=== PATIENT | female | born 1975 | race African-American/Black ===

== ENCOUNTER 2016-07-23 15:50 | Emergency (ER) | payer MEDICAID ==
[2016-07-23] MEDS ORDERED: Sodium Chloride 0.9% 10 ML Syringe FLUSH PRN (15:55)
[2016-07-23] MEDS ORDERED: Sodium Chloride 0.9% 2.5 ML Syringe FLUSH PRN (15:55)
--- NOTE | 2016-07-23 15:56 | EDM.PDOC ---
ED HISTORY OF PRESENT ILLNESS - General Stated Complaint: DIZZINESS Time Seen by Provider: 07/23/16 15:53 Source of Information: Reports: Patient History Limitations: Reports: No limitations - History of Present Illness INITIAL COMMENTS - FREE TEXT/NARRATIVE: History of present illness: [] She has been having palpitations for the last 3 days and went to the clinic today but was immediately sent to the emergency room. Patient has a history of high blood pressure but has been off her meds for 3 months. She denies having any chest pain or shortness of breath at this time. Review of systems: As per history of present illness and below otherwise all systems reviewed and negative. Past medical history: As per history of present illness and as reviewed below otherwise noncontributory. Surgical history: As per history of present illness and as reviewed below otherwise noncontributory. Social history: No reported history of drug or alcohol abuse. Family history: As per history of present illness and as reviewed below otherwise noncontributory. Physical exam: General: Well developed, well nourished in NAD HEENT: Atraumatic, normocephalic, pupils reactive, negative for conjunctival pallor or scleral icterus, mucous membranes moist, throat clear, neck supple, nontender, trachea midline. Lungs: Clear to auscultation, breath sounds equal bilaterally, chest nontender. Heart: S1S2, regular, negative for clicks, rubs, or JVD. Abdomen: Soft, nondistended, nontender. Negative for masses or hepatosplenomegaly. Negative for costovertebral tenderness. Pelvis: Stable nontender. Genitourinary: Deferred. Rectal: Deferred. Extremities: Atraumatic, negative for cords or calf pain. Neurovascular unremarkable. Neuro: Awake, alert, oriented. Cranial nerves II through XII unremarkable. Cerebellum unremarkable. Motor and sensory unremarkable throughout. Exam nonfocal. Diagnostics: [] Labs, chest x-ray, EKG, CT head all normal except for mild hypokalemia Therapeutics: [] She was given pain medication for her headache her symptoms resolved. Impression: [] Uncontrolled hypertension, palpitations Plan: [] Followup PMD, I will restart her back on metoprolol 25 mg twice a day. Definitive disposition and diagnosis as appropriate pending reevaluation and review of above. - Related Data Allergies/ADRs: Allergies Allergy/AdvReac Type Severity Reaction Status Date / Time No Known Allergies Allergy Verified 07/23/16 15:57 Home Meds: Home Meds Metoprolol Tartrate 25 mg PO BID #20 tablet 07/23/16 [Rx] ED ROS GENERAL - Review of Systems Review Of Systems: See Below (See history of present illness) ED EXAM, GENERAL - Physical Exam Exam: See Below (See history of present illness) Course - Vital Signs Last Recorded V/S: Last Vital Signs Temp 37.1 C 07/23/16 18:13 Pulse 62 07/23/16 18:13 Resp 15 07/23/16 18:13 BP 145/92 H 07/23/16 18:13 Pulse Ox 99 07/23/16 17:00 - Orders/Labs/Meds Orders: Active Orders 24 hr Category Date Time Status Chest 1V Frontal [CR] Stat Exams 07/23/16 15:55 Taken Head wo Cont [CT] Stat Exams 07/23/16 17:01 Taken Sodium Chloride 0.9% [Saline Flush] Med 07/23/16 15:55 Active 10 ml FLUSH ASDIRECTED PRN Sodium Chloride 0.9% [Saline Flush] Med 07/23/16 15:55 Active 2.5 ml FLUSH ASDIRECTED PRN Peripheral IV Insertion Adult [OM.PC] Stat Oth 07/23/16 15:55 Ordered Medication Orders Sodium Chloride (Saline Flush) 10 ml FLUSH ASDIRECTED PRN PRN Reason: Keep Vein Open Last Admin: 07/23/16 16:08 Dose: 10 ml Sodium Chloride (Saline Flush) 2.5 ml FLUSH ASDIRECTED PRN PRN Reason: Keep Vein Open Last Admin: 07/23/16 16:08 Dose: 2.5 ml Labs: Laboratory Tests 07/23/16 07/23/16 07/23/16 Range/Units 16:00 16:00 16:00 WBC 5.73 (4.0-11.0) K/uL RBC 4.66 (4.30-5.90) M/uL Hgb 11.2 L (12.0-16.0) g/dL Hct 35.8 L (36.0-46.0) % MCV 76.8 L (80.0-98.0) fL MCH 24.0 L (27.0-32.0) pg MCHC 31.3 (31.0-37.0) g/dL RDW Std Deviation 43.4 (28.0-62.0) fl RDW Coeff of Kendrick 16 H (11.0-15.0) % Plt Count 256 (150-400) K/uL MPV 10.30 (7.40-12.00) fL Neut % (Auto) 55.9 (48.0-80.0) % Lymph % (Auto) 29.5 (16.0-40.0) % Trimble % (Auto) 13.4 (0.0-15.0) % Eos % (Auto) 0.9 (0.0-7.0) % Baso % (Auto) 0.3 (0.0-1.5) % Neut # 3.2 (1.4-5.7) K/uL Lymph # 1.7 (0.6-2.4) K/uL Trimble # 0.8 (0.0-0.8) K/uL Eos # 0.1 (0.0-0.7) K/uL Baso # 0.0 (0.0-0.1) K/uL Nucleated RBC % 0.0 /100WBC Nucleated RBCs # 0 K/uL Sodium 142 (136-146) mmol/L Potassium 3.3 L (3.5-5.1) mmol/L Chloride 106 (98-110) mmol/L Carbon Dioxide 25 (21-31) mmol/L BUN 13 (6.0-23.0) mg/dL Creatinine 0.9 (0.6-1.5) mg/dL Est Cr Clr Drug Dosing 77.01 mL/min Estimated GFR (MDRD) > 60.0 ml/min Glucose 78 (60-110) mg/dL Calcium 9.2 (8.8-10.8) mg/dL Total Bilirubin 0.2 (0.1-1.5) mg/dL AST 24 (5-40) IU/L ALT 23 (8-54) IU/L Alkaline Phosphatase 75 (40-150) Troponin I < 0.10 (0.0-0.29) NG/ML Total Protein 7.9 (6.0-8.0) g/dL Albumin 3.8 (3.5-5.0) g/dL Globulin 4.1 H (2.0-3.5) g/dL Albumin/Globulin Ratio 0.9 L (1.3-2.8) HCG, Qual (NEG) 07/23/16 Range/Units 16:00 WBC (4.0-11.0) K/uL RBC (4.30-5.90) M/uL Hgb (12.0-16.0) g/dL Hct (36.0-46.0) % MCV (80.0-98.0) fL MCH (27.0-32.0) pg MCHC (31.0-37.0) g/dL RDW Std Deviation (28.0-62.0) fl RDW Coeff of Kendrick (11.0-15.0) % Plt Count (150-400) K/uL MPV (7.40-12.00) fL Neut % (Auto) (48.0-80.0) % Lymph % (Auto) (16.0-40.0) % Trimble % (Auto) (0.0-15.0) % Eos % (Auto) (0.0-7.0) % Baso % (Auto) (0.0-1.5) % Neut # (1.4-5.7) K/uL Lymph # (0.6-2.4) K/uL Trimble # (0.0-0.8) K/uL Eos # (0.0-0.7) K/uL Baso # (0.0-0.1) K/uL Nucleated RBC % /100WBC Nucleated RBCs # K/uL Sodium (136-146) mmol/L Potassium (3.5-5.1) mmol/L Chloride (98-110) mmol/L Carbon Dioxide (21-31) mmol/L BUN (6.0-23.0) mg/dL Creatinine (0.6-1.5) mg/dL Est Cr Clr Drug Dosing mL/min Estimated GFR (MDRD) ml/min Glucose (60-110) mg/dL Calcium (8.8-10.8) mg/dL Total Bilirubin (0.1-1.5) mg/dL AST (5-40) IU/L ALT (8-54) IU/L Alkaline Phosphatase (40-150) Troponin I (0.0-0.29) NG/ML Total Protein (6.0-8.0) g/dL Albumin (3.5-5.0) g/dL Globulin (2.0-3.5) g/dL Albumin/Globulin Ratio (1.3-2.8) HCG, Qual NEGATIVE (NEG) Meds: Medications Generic Name Dose Route Start Last Admin Trade Name Freq PRN Reason Stop Dose Admin Sodium Chloride 10 ml 07/23/16 15:55 07/23/16 16:08 Saline Flush FLUSH 10 ml ASDIRECTED PRN Administration Keep Vein Open Sodium Chloride 2.5 ml 07/23/16 15:55 07/23/16 16:08 Saline Flush FLUSH 2.5 ml ASDIRECTED PRN Administration Keep Vein Open Discontinued Medications Generic Name Dose Route Start Last Admin Trade Name Freq PRN Reason Stop Dose Admin Morphine Sulfate 2 mg 07/23/16 17:00 07/23/16 17:23 Morphine IVPUSH 07/23/16 17:01 2 mg ONETIME ONE Administration Ondansetron HCl 4 mg 07/23/16 17:00 07/23/16 17:23 Zofran IVPUSH 07/23/16 17:01 4 mg ONETIME ONE Administration Potassium Chloride 40 meq 07/23/16 16:42 07/23/16 16:59 Klor-Con M20 PO 07/23/16 16:43 40 meq ONETIME ONE Administration Departure - Departure Time of Disposition: 18:37 Disposition: Home, Self-Care 01 Condition: good Clinical Impression: Uncontrolled hypertension, Palpitations Forms: Refusal of Care AMA Additional Instructions: The following information is given to patients seen in the emergency department who are being discharged to home. This information is to outline your options for follow-up care. We provide all patients seen in our emergency department with a follow-up referral. The need for follow-up, as well as the timing and circumstances, are variable depending upon the specifics of your emergency department visit. If you don't have a primary care physician on staff, we will provide you with a referral. We always advise you to contact your personal physician following an emergency department visit to inform them of the circumstance of the visit and for follow-up with them and/or the need for any referrals to a consulting specialist. The emergency department will also refer you to a specialist when appropriate. This referral assures that you have the opportunity for follow-up care with a specialist. All of these measure are taken in an effort to provide you with optimal care, which includes your follow-up. Under all circumstances we always encourage you to contact your private physician who remains a resource for coordinating your care. When calling for follow-up care, please make the office aware that this follow-up is from your recent emergency room visit. If for any reason you are refused follow-up, please contact the [facility] Emergency Department at and asked to speak to the emergency department charge nurse. Toprol 25 mg twice a day [facility] [address] [place] [address] - My Orders Last 24 Hours: My Active Orders 07/23/16 15:55 Chest 1V Frontal [CR] Stat Sodium Chloride 0.9% [Saline Flush] 10 ml FLUSH ASDIRECTED PRN Sodium Chloride 0.9% [Saline Flush] 2.5 ml FLUSH ASDIRECTED PRN Peripheral IV Insertion Adult [OM.PC] Stat 07/23/16 17:01 Head wo Cont [CT] Stat - Assessment/Plan Last 24 Hours: My Active Orders 07/23/16 15:55 Chest 1V Frontal [CR] Stat Sodium Chloride 0.9% [Saline Flush] 10 ml FLUSH ASDIRECTED PRN Sodium Chloride 0.9% [Saline Flush] 2.5 ml FLUSH ASDIRECTED PRN Peripheral IV Insertion Adult [OM.PC] Stat 07/23/16 17:01 Head wo Cont [CT] Stat
[2016-07-23 16:35] LABS: CHLORIDE,CL 106 mmol/L (98-110); SODIUM,NA 142 mmol/L (136-146)
[2016-07-23] MEDS ORDERED: Potassium Chloride 20 MEQ Tab.ER PO ONE (16:42)
[2016-07-23] MEDS ORDERED: Morphine 2 MG/ML Syringe IVPUSH ONE (17:00)
[2016-07-23] MEDS: Ondansetron 4 MG/2 ML SDV IVPUSH ONE ×2 (17:23→18:40)
[2016-07-23] MEDS: Morphine 2 MG/ML Syringe IVPUSH ONE ×2 (18:40→18:49)
[2016-07-23 19:17] VITALS: BP 156/74
--- NOTE | 2016-07-24 13:10 | CR ---
EXAM DATE: 07/23/16 PATIENT'S AGE: 41 Patient: RALF RAMIREZ Facility: [place], [place] Site . Site : 1975 Study: XRay Chest [id number]/7/2017 4:47:18 PM Ordering Physician: Doctor Burr Final Report: HISTORY: Pain, shortness of breath. FINDINGS: AP portable chest radiograph is degraded by large body habitus. Apical lordotic positioning is present. EKG leads overlie the thorax. Cardiac silhouette is upper limits of normal. Pulmonary vasculature is free of cephalization. No lobar consolidation or pleural effusion is seen. IMPRESSION: No acute cardiopulmonary disease. Dictated by Courtney Guzman MD @ 07/23/2016 5:03:17 PM Dictated by: Courtney Guzman MD @ 07/23/2016 17:03:24 (Electronic Signature) Report Signed by Proxy and Original Signed Document filed in the Medical Record. GEMA
--- NOTE | 2016-07-24 13:11 | CT ---
EXAM DATE: 07/23/16 PATIENT'S AGE: 41 Patient: RALF RAMIREZ Facility: [place], [place] Site . Site : 1975 Study: CT Head [id number]/7/2017 6:04:54 PM Ordering Physician: Pineda Rocha Final Report: INDICATION: Pain, dizzy, sinus pressure TECHNIQUE: CT head without contrast. COMPARISON: None FINDINGS: CSF spaces: Within normal limits for age. Brain parenchyma: The cheng-white differentiation is normal. No sign of mass, hemorrhage, or midline shift. Skull base and calvarium: The visualized paranasal sinuses and mastoid air cells demonstrate no acute or significant findings. The visualized orbits are grossly unremarkable. No skull fractures. IMPRESSION: Unremarkable noncontrast head CT. Dictated by Aria Montana MD @ Jul 23 2016 6:23PM (Electronic Signature) Report Signed by Proxy and Original Signed Document filed in the Medical Record. GEMA
[2016-07-25] MEDS: Morphine 2 MG/ML Syringe IVPUSH ONE (10:37)
== END 2016-07-23 19:41 | disposition home or self-care (01) ==
LOC: MW.ED 15:50
DX: I10 Essential (primary) hypertension (principal); R00.2 Palpitations; R42 Dizziness and giddiness
CPT/HCPCS: 36415; 70450; 71010; 80053; 84484; 84703; 85025; 93005; 96374; 96375; 96376; 99285; A9270; J2270; J2405; 99284

== ENCOUNTER 2016-08-03 16:04 | Emergency (ER) | payer MEDICAID ==
[2016-08-03] MEDS ORDERED: Ketorolac 60 MG/2 ML SDV IM ONE (16:17)
--- NOTE | 2016-08-03 16:20 | EDM.PDOC ---
ED HPI Trauma - General Chief Complaint: Lower Extremity Injury/Pain Stated Complaint: PAIN IN RIGHT LEG Time Seen by Provider: 08/03/16 16:09 - History of Present Illness INITIAL COMMENTS - FREE TEXT/NARRATIVE: HISTORY AND PHYSICAL: History of present illness: The patient is a 41-year-old female who has no local family Dr. and has a history of hypertension and presents to the ED with pain and swelling to the ankle on the right foot that has been ongoing for 2 days. The patient does a lot of standing at work but does not recall any specific trauma or twisting the area and she has no distal toe or foot pain no proximal leg or calf pain and no knee or hip pain on the right side. She says she took Motrin and it did not help and she is here for evaluation. She has no other joint pain or swelling and no history of arthritides or associated orthopedic issues. She denies any numbness or tingling in the right leg Review of systems: As per history of present illness and below otherwise all systems reviewed and negative. Past medical history: As per history of present illness and as reviewed below otherwise noncontributory. Surgical history: As per history of present illness and as reviewed below otherwise noncontributory. Social history: No reported history of drug or alcohol abuse. Family history: As per history of present illness and as reviewed below otherwise noncontributory. Physical exam: General: Well-developed overweight female who is nontoxic and speaking clearly and easily in the ER. Significantly ambulating into the ED secondary to pain at the right ankle HEENT: Atraumatic, normocephalic, negative for conjunctival pallor or scleral icterus, mucous membranes moist, throat clear, neck supple, nontender, trachea midline. Lungs: Clear to auscultation, breath sounds equal bilaterally, chest nontender. Heart: S1S2, regular rate and rhythm no overt murmurs Abdomen: Soft, nondistended, nontender. NABS Pelvis: Stable nontender. No lateral hip tenderness Genitourinary: Deferred. Rectal: Deferred. Extremities: There is diffuse soft tissue swelling of the lateral malleolus on the right extending down slightly but not inclusive of the fifth metatarsal head , there is no ecchymosis erythema or warmth no joint effusion in the ankle, there are no palpable bony deformities or crepitus and pulses distally are intact, there is no proximal calf tenderness or leg asymmetry no pedal edema and no tenderness in the popliteal fossa or knee. The legs are negative for cords or calf pain. Neurovascular unremarkable. Neuro: Awake, alert, oriented. Cranial nerves II through XII unremarkable. Cerebellum unremarkable. Motor and sensory unremarkable throughout. Exam nonfocal. Diagnostics: X-ray right ankle Therapeutics: Toradol ortho boot prednisone Repeat blood pressure at 1715 was 210/93; I discussed the elevated blood pressures with the patient and told her that she needs clinic followup to begin to adjust her medications and control that better. She has no headache blurred vision neurosensory changes chest pain or shortness of breath. She States understanding Impression: Right ankle pain and swelling etiology unclear rule out arthritides Definitive disposition and diagnosis as appropriate pending reevaluation and review of above. Allergies/ADRs: Allergies No Known Allergies Allergy (Verified 08/03/16 16:12) Home Medications: Ambulatory Orders Metoprolol Tartrate 25 mg PO BID #20 tablet 07/23/16 [Confirmed 08/03/16] Past Medical History - Past Health History Medical/Surgical History: Denies Medical/Surgical History Social & Family History - Family History Family Medical History: Noncontributory - Tobacco Use Smoking Status *Q: Never Smoker - Recreational Drug Use Recreational Drug Use: No Review of Systems - Review of Systems Review Of Systems: ROS reveals no pertinent complaints other than HPI. Trauma Exam - Physical Exam Exam: See Below (See dictation) Course - Vital Signs Last Recorded V/S: Last Vital Signs Temp 36.4 C 08/03/16 16:12 Pulse 60 08/03/16 16:12 Resp 18 08/03/16 16:12 BP 184/119 H 08/03/16 16:12 Pulse Ox 98 08/03/16 16:12 - Orders/Labs/Meds Orders: Active Orders 24 hr Category Date Time Status Ankle Min 3V Rt [CR] Stat Exams 08/03/16 16:17 Taken DME for Discharge [COMM] Stat Oth 08/03/16 17:12 Ordered Meds: Medications Discontinued Medications Generic Name Dose Route Start Last Admin Trade Name Freq PRN Reason Stop Dose Admin Ketorolac Tromethamine 60 mg 08/03/16 16:17 08/03/16 16:26 Toradol IM 08/03/16 16:18 60 mg ONETIME ONE Administration Prednisone 40 mg 08/03/16 17:12 Prednisone PO 08/03/16 17:13 ONETIME ONE Departure - Departure Time of Disposition: 17:13 Disposition: Home, Self-Care 01 Condition: good Clinical Impression: Right ankle pain Qualifiers: Chronicity: acute Qualified Code(s): M25.571 - Pain in right ankle and joints of right foot Referrals: PCP,None [Primary Care Provider] - Forms: ED Department Discharge Additional Instructions: The following information is given to patients seen in the emergency department who are being discharged to home. This information is to outline your options for follow-up care. We provide all patients seen in our emergency department with a follow-up referral. The need for follow-up, as well as the timing and circumstances, are variable depending upon the specifics of your emergency department visit. If you don't have a primary care physician on staff, we will provide you with a referral. We always advise you to contact your personal physician following an emergency department visit to inform them of the circumstance of the visit and for follow-up with them and/or the need for any referrals to a consulting specialist. The emergency department will also refer you to a specialist when appropriate. This referral assures that you have the opportunity for followup care with a specialist. All of these measure are taken in an effort to provide you with optimal care, which includes your followup. Under all circumstances we always encourage you to contact your private physician who remains a resource for coordinating your care. When calling for followup care, please make the office aware that this follow-up is from your recent emergency room visit. If for any reason you are refused follow-up, please contact the [facility] emergency department at and ask to speak to the emergency department charge nurse. [facility] Primary care- Internal Medicine and Family [facility] [address] [place] [id number] [facility] Specialty Care--Orthopedic clinic Professional Building [address] [place] [id number] Ice and elevate the area as discussed and take medications as prescribed. Please call and followup with primary care and orthopedics using resources given to above. Please also discuss with primary care your elevated blood pressure as her medications will likely need to be adjusted. Return to ER as needed and as discussed - My Orders Last 24 Hours: My Active Orders 08/03/16 16:17 Ankle Min 3V Rt [CR] Stat 08/03/16 17:12 DME for Discharge [COMM] Stat - Assessment/Plan Last 24 Hours: My Active Orders 08/03/16 16:17 Ankle Min 3V Rt [CR] Stat 08/03/16 17:12 DME for Discharge [COMM] Stat
[2016-08-03] MEDS ORDERED: predniSONE 20 MG Tab PO ONE (17:12)
[2016-08-03 18:33] VITALS: BP 198/98
--- NOTE | 2016-08-05 17:49 | CR ---
EXAM DATE: 08/03/16 PATIENT'S AGE: 41 Patient: RALF RAMIREZ Facility: [place], [place] Site . Site : 1975 Study: XRay Extremity Right [id number]/18/2017 4:39:58 PM Ordering Physician: Pietro Aaron Final Report: HISTORY: Pain and swelling. Comparison: None. Findings: The ankle mortise appears intact. No evidence for acute fracture or dislocation. Moderate soft tissue swelling of the ankle. Dictated by Selene Mckeon MD @ Aug 03 2016 5:01PM (Electronic Signature) Report Signed by Proxy and Original Signed Document filed in the Medical Record. NORMAND
== END 2016-08-03 17:41 | disposition home or self-care (01) ==
LOC: MW.ED 16:04
DX: M25.571 Pain in right ankle and joints of right foot (principal)
CPT/HCPCS: 73610; 96372; 99283; A9270; J1885

== ENCOUNTER → 2016-08-06 | Outpatient (CLI) | payer MEDICAID ==
--- NOTE | 2016-08-07 08:34 | CR ---
EXAMINATION: Right foot HISTORY: Pain COMPARISON: None TECHNIQUE: 3 views FINDINGS: There is no definite acute osseous abnormality, dislocation, or fracture identified. Bone mineralization and joint spaces are grossly preserved. There is mild generalized soft tissue swellin g. Vague ossific density projects along the lateral aspect of the mid foot. IMPRESSION: 1. Mild generalized soft tissue swelling with a vague ossific density along the lateral aspect of th e midfoot.
== END ==
LOC: MW.CHORTHO 08:07
PROVIDERS: ATTEND Physician Assistant
DX: M25.571 Pain in right ankle and joints of right foot (principal); M79.89 Other specified soft tissue disorders
CPT/HCPCS: 73630-26-RT; 73630-RT

== ENCOUNTER 2017-02-06 15:15 | Emergency (ER) | payer MEDICAID ==
[2017-02-06] MEDS ORDERED: Sodium Chloride 0.9% 2.5 ML Syringe FLUSH PRN (15:42)
[2017-02-06] MEDS ORDERED: Sodium Chloride 0.9% 10 ML Syringe FLUSH PRN (15:42)
[2017-02-06] MEDS ORDERED: Labetalol 100 MG/20 ML MDV IV ONE (16:15)
--- NOTE | 2017-02-06 16:36 | EDM.PDOC ---
ED HPI GENERAL MEDICAL PROBLEM - General Chief Complaint: Cardiovascular Problem Stated Complaint: HIGH BP Time Seen by Provider: 02/06/17 15:34 Source of Information: Reports: Patient History Limitations: Reports: No Limitations - History of Present Illness INITIAL COMMENTS - FREE TEXT/NARRATIVE: HISTORY AND PHYSICAL: []41-year-old black female presenting with hypertension and not feeling well History of Present Illness: []Patient has not taken her hypertensive medication for the last month She's been on metoprolol 25 mg twice a day Patient relates having had flulike symptoms for the last 3 days Review of Systems: As per history of present illness and below otherwise all systems reviewed and negative. Past medical history: As per history of present illness and as reviewed below otherwise noncontributory. Surgical history: As per history of present illness and as reviewed below otherwise noncontributory. Social history: No reported history of drug or alcohol abuse. Family history: As per history of present illness and as reviewed below otherwise noncontributory. Physical exam: Alert and oriented female, answering questions appropriately, she is speaking in full sentences, no shortness of breath noted, she is nontoxic in appearance. HEENT: Atraumatic, normocehpalic, pupils reactive, negative for conjunctival pallor or scleral icterus, mucous membranes moist, throat clear, neck supple, nontender, trachea midline. Lungs: Clear to auscultation, breath sounds equal bilaterally, chest non tender. Heart: S1S2, regular, negative for clicks, rubs, or JVD. Abdomen: Soft, nondistended, nontender. Negative for masses or hepatossplenmegaly. Negative for costovertebral tenderness. Pelvis: Stable nontender. Genitourinary: Deferred. Rectal: Deferred Extremities: Atraumatic, negative for cords or calf pain. Neurovascular unremarkable. Neuro: Awake, alert, oriented. Cranial nerves II through XII unremarkable. Cerebellum unremarkable. Motor and sensory unremarkable throughout. Exam nonfocal. Discussed with patient her lab results. Blood pressure improving with the labetalol and was given 180/82. Patient denies any headache we'll give her lisinopril 10 mg by mouth here. Patient requests to see Dr. Espinal and will have her follow-up next week with him Diagnostics: [CBC CMP chest x-ray troponin influenza EKG HCG] Therapeutics: [Labetalol 20 mg] Impression: [Hypertension] Plan: [Discharged to home Prescription for lisinopril 10 mg HCTZ 25mg Follow-up with your primary care doctor in 1 week] Definitive disposition and diagnosis as appropriate pending reevaluation and review of above. 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: Musculoskeletal History: Reports: None Neurological History: Reports: None Psychiatric History: Reports: None Endocrine/Metabolic History: Reports: None Hematologic History: Reports: None Immunologic History: Reports: None Oncologic (Cancer) History: Reports: None Dermatologic History: Reports: None - Infectious Disease History Infectious Disease History: Reports: TB - Past Surgical History GI Surgical History: Reports: Cholecystectomy Social & Family History - Family History Family Medical History: Noncontributory - Tobacco Use Smoking Status *Q: Never Smoker - Caffeine Use Caffeine Use: Reports: None - Recreational Drug Use Recreational Drug Use: No ED ROS GENERAL - Review of Systems Review Of Systems: ROS reveals no pertinent complaints other than HPI. ED EXAM, GENERAL - Physical Exam Exam: See Below (See dictation) EKG INTERPRETATION EKG Date: 02/06/17 Rhythm: NSR Course - Vital Signs Last Recorded V/S: Last Vital Signs Temp 35.9 C 02/06/17 15:32 Pulse 57 L 02/06/17 16:21 Resp 18 02/06/17 15:32 BP 201/87 H 02/06/17 16:21 Pulse Ox 98 02/06/17 15:32 - Orders/Labs/Meds Orders: Active Orders 24 hr Category Date Time Status EKG Documentation Completion [RC] STAT Care 02/06/17 15:46 Active Chest 2V [CR] Stat Exams 02/06/17 15:42 Taken Lisinopril [Prinivil] Med 02/06/17 18:05 Once 10 mg PO ONETIME ONE Sodium Chloride 0.9% [Saline Flush] Med 02/06/17 15:42 Active 10 ml FLUSH ASDIRECTED PRN Sodium Chloride 0.9% [Saline Flush] Med 02/06/17 15:42 Active 2.5 ml FLUSH ASDIRECTED PRN Saline Lock Insert [OM.PC] Stat Oth 02/06/17 15:42 Ordered Medication Orders Sodium Chloride (Saline Flush) 10 ml FLUSH ASDIRECTED PRN PRN Reason: Keep Vein Open Last Admin: 02/06/17 16:23 Dose: 10 ml Sodium Chloride (Saline Flush) 2.5 ml FLUSH ASDIRECTED PRN PRN Reason: Keep Vein Open Last Admin: 02/06/17 16:22 Dose: 2.5 ml Labs: Laboratory Tests 02/06/17 02/06/17 02/06/17 Range/Units 15:55 15:55 15:55 WBC 5.70 (4.0-11.0) K/uL RBC 4.75 (4.30-5.90) M/uL Hgb 11.9 L (12.0-16.0) g/dL Hct 36.8 (36.0-46.0) % MCV 77.5 L (80.0-98.0) fL MCH 25.1 L (27.0-32.0) pg MCHC 32.3 (31.0-37.0) g/dL RDW Std Deviation 42.3 (28.0-62.0) fl RDW Coeff of Kendrick 15 (11.0-15.0) % Plt Count 298 (150-400) K/uL MPV 10.90 (7.40-12.00) fL Neut % (Auto) 58.6 (48.0-80.0) % Lymph % (Auto) 26.7 (16.0-40.0) % Orange % (Auto) 13.2 (0.0-15.0) % Eos % (Auto) 1.1 (0.0-7.0) % Baso % (Auto) 0.4 (0.0-1.5) % Neut # (Auto) 3.4 (1.4-5.7) K/uL Lymph # (Auto) 1.5 (0.6-2.4) K/uL Orange # (Auto) 0.8 (0.0-0.8) K/uL Eos # (Auto) 0.1 (0.0-0.7) K/uL Baso # (Auto) 0.0 (0.0-0.1) K/uL Nucleated RBC % 0.0 /100WBC Nucleated RBCs # 0 K/uL Sodium 139 (136-146) mmol/L Potassium 3.4 L (3.5-5.1) mmol/L Chloride 104 (98-110) mmol/L Carbon Dioxide 25 (21-31) mmol/L BUN 16 (6.0-23.0) mg/dL Creatinine 0.9 (0.6-1.5) mg/dL Est Cr Clr Drug Dosing 77.01 mL/min Estimated GFR (MDRD) > 60.0 ml/min Glucose 86 (60-110) mg/dL Calcium 9.4 (8.8-10.8) mg/dL Total Bilirubin 0.1 (0.1-1.5) mg/dL AST 30 (5-40) IU/L ALT 25 (8-54) IU/L Alkaline Phosphatase 79 (40-150) Troponin I < 0.10 (0.0-0.29) NG/ML Total Protein 8.5 H (6.0-8.0) g/dL Albumin 4.1 (3.5-5.0) g/dL Globulin 4.4 H (2.0-3.5) g/dL Albumin/Globulin Ratio 0.9 L (1.3-2.8) Urine Color Urine Appearance Urine pH (5.0-8.0) Ur Specific Murtaugh (1.001-1.035) Urine Protein (NEGATIVE) mg/dL Urine Glucose (UA) (NEGATIVE) mg/dL Urine Ketones (NEGATIVE) mg/dL Urine Occult Blood (NEGATIVE) Urine Nitrite (NEGATIVE) Urine Bilirubin (NEGATIVE) Urine Urobilinogen (<2.0) EU/dL Ur Leukocyte Esterase (NEGATIVE) Urine RBC (0-2/HPF) Urine WBC (0-5/HPF) Ur Epithelial Cells (NONE-FEW) Amorphous Sediment (NEGATIVE) Urine Bacteria (NEGATIVE) Urine HCG, Qual (NEGATIVE) 02/06/17 02/06/17 Range/Units 16:30 16:30 WBC (4.0-11.0) K/uL RBC (4.30-5.90) M/uL Hgb (12.0-16.0) g/dL Hct (36.0-46.0) % MCV (80.0-98.0) fL MCH (27.0-32.0) pg MCHC (31.0-37.0) g/dL RDW Std Deviation (28.0-62.0) fl RDW Coeff of Kendrick (11.0-15.0) % Plt Count (150-400) K/uL MPV (7.40-12.00) fL Neut % (Auto) (48.0-80.0) % Lymph % (Auto) (16.0-40.0) % Orange % (Auto) (0.0-15.0) % Eos % (Auto) (0.0-7.0) % Baso % (Auto) (0.0-1.5) % Neut # (Auto) (1.4-5.7) K/uL Lymph # (Auto) (0.6-2.4) K/uL Orange # (Auto) (0.0-0.8) K/uL Eos # (Auto) (0.0-0.7) K/uL Baso # (Auto) (0.0-0.1) K/uL Nucleated RBC % /100WBC Nucleated RBCs # K/uL Sodium (136-146) mmol/L Potassium (3.5-5.1) mmol/L Chloride (98-110) mmol/L Carbon Dioxide (21-31) mmol/L BUN (6.0-23.0) mg/dL Creatinine (0.6-1.5) mg/dL Est Cr Clr Drug Dosing mL/min Estimated GFR (MDRD) ml/min Glucose (60-110) mg/dL Calcium (8.8-10.8) mg/dL Total Bilirubin (0.1-1.5) mg/dL AST (5-40) IU/L ALT (8-54) IU/L Alkaline Phosphatase (40-150) Troponin I (0.0-0.29) NG/ML Total Protein (6.0-8.0) g/dL Albumin (3.5-5.0) g/dL Globulin (2.0-3.5) g/dL Albumin/Globulin Ratio (1.3-2.8) Urine Color YELLOW Urine Appearance CLEAR Urine pH 5.5 (5.0-8.0) Ur Specific Mur[place]ugh <= 1.005 (1.001-1.035) Urine Protein NEGATIVE (NEGATIVE) mg/dL Urine Glucose (UA) NEGATIVE (NEGATIVE) mg/dL Urine Ketones NEGATIVE (NEGATIVE) mg/dL Urine Occult Blood SMALL H (NEGATIVE) Urine Nitrite NEGATIVE (NEGATIVE) Urine Bilirubin NEGATIVE (NEGATIVE) Urine Urobilinogen 0.2 (<2.0) EU/dL Ur Leukocyte Esterase NEGATIVE (NEGATIVE) Urine RBC 0-1 (0-2/HPF) Urine WBC NONE SEEN (0-5/HPF) Ur Epithelial Cells RARE (NONE-FEW) Amorphous Sediment RARE (NEGATIVE) Urine Bacteria RARE (NEGATIVE) Urine HCG, Qual NEGATIVE (NEGATIVE) Meds: Medications Generic Name Dose Route Start Last Admin Trade Name Julita PRN Reason Stop Dose Admin Sodium Chloride 10 ml 02/06/17 15:42 02/06/17 16:23 Saline Flush FLUSH 10 ml ASDIRECTED PRN Administration Keep Vein Open Sodium Chloride 2.5 ml 02/06/17 15:42 02/06/17 16:22 Saline Flush FLUSH 2.5 ml ASDIRECTED PRN Administration Keep Vein Open Discontinued Medications Generic Name Dose Route Start Last Admin Trade Name Freq PRN Reason Stop Dose Admin Labetalol HCl 20 mg 02/06/17 16:15 02/06/17 16:21 Normodyne IV 02/06/17 16:16 4 ml ONETIME ONE Administration Departure - Departure Time of Disposition: 18:06 Disposition: Home, Self-Care 01 Condition: Good Clinical Impression: Hypertensive heart disease Qualifiers: Heart failure presence: without heart failure Qualified Code(s): I11.9 - Hypertensive heart disease without heart failure Prescriptions: Lisinopril/Hydrochlorothiazide [Lisinopril-Hctz 10-12.5 mg Tab] 1 each PO DAILY #30 tablet Referrals: PCP,None [Primary Care Provider] - Forms: ED Department Discharge - My Orders Last 24 Hours: My Active Orders 02/06/17 15:42 Chest 2V [CR] Stat Sodium Chloride 0.9% [Saline Flush] 10 ml FLUSH ASDIRECTED PRN Sodium Chloride 0.9% [Saline Flush] 2.5 ml FLUSH ASDIRECTED PRN Saline Lock Insert [OM.PC] Stat 02/06/17 15:46 EKG Documentation Completion [RC] STAT 02/06/17 18:05 Lisinopril [Prinivil] 10 mg PO ONETIME ONE - Assessment/Plan Last 24 Hours: My Active Orders 02/06/17 15:42 Chest 2V [CR] Stat Sodium Chloride 0.9% [Saline Flush] 10 ml FLUSH ASDIRECTED PRN Sodium Chloride 0.9% [Saline Flush] 2.5 ml FLUSH ASDIRECTED PRN Saline Lock Insert [OM.PC] Stat 02/06/17 15:46 EKG Documentation Completion [RC] STAT 02/06/17 18:05 Lisinopril [Prinivil] 10 mg PO ONETIME ONE
[2017-02-06 16:53] LABS: CHLORIDE,CL 104 mmol/L (98-110); SODIUM,NA 139 mmol/L (136-146)
[2017-02-06] MEDS ORDERED: Lisinopril 10 MG Tab PO ONE (18:05)
[2017-02-06 19:13] VITALS: BP 171/77
--- NOTE | 2017-02-07 12:00 | CR ---
EXAM DATE: 02/06/17 PATIENT'S AGE: 41 Patient: RALF RAMIREZ Facility: [place], [place] Site . Site : [id number] Study: XRay Chest mw-02/06/2017 5:47:30 PM Ordering Physician: Doctor Burr Final Report: INDICATION: Pain, shortness of breath. TECHNIQUE: Chest radiograph 2 views COMPARISON: None FINDINGS: Cardiovascular and mediastinum: The heart silhouette is normal in size and morphology. The mediastinum is normal in appearance. Lungs and pleural spaces: Both lungs are unremarkable in appearance. No sign of pleural effusion seen. No pneumothorax is identified. Bones and soft tissues: No significant findings. IMPRESSION: 1. No acute cardiopulmonary disease is seen. Dictated by Juni Thurman MD @ 02/06/2017 6:15:16 PM Dictated by: Juni Thurman MD @ 02/06/2017 18:15:22 (Electronic Signature) Report Signed by Proxy. [facility] HOSPITALMayra
== END 2017-02-06 18:20 | disposition home or self-care (01) ==
LOC: MW.ED 15:15
DX: I11.9 Hypertensive heart disease without heart failure (principal); Z79.899 Other long term (current) drug therapy; Z90.49 Acquired absence of other specified parts of digestive tract
CPT/HCPCS: 36415; 71020; 80053; 81001; 81025; 84484; 85025; 87804; 93005; 96374; 99284; A9270; 99283

== ENCOUNTER 2017-03-22 11:44 | Emergency (ER) | payer MEDICAID ==
[2017-03-22] MEDS ORDERED: Albuterol 0.083% 2.5 MG/3 ML Neb Soln NEB ONE (12:10)
--- NOTE | 2017-03-22 12:57 | EDM.PDOC ---
ED HPI GENERAL MEDICAL PROBLEM - General Chief Complaint: ENT Problem Stated Complaint: SORE THROAT Time Seen by Provider: 03/22/17 12:00 Source of Information: Reports: Patient History Limitations: Reports: No Limitations - History of Present Illness INITIAL COMMENTS - FREE TEXT/NARRATIVE: HISTORY AND PHYSICAL: History of present illness: [Patient comes to the emergency room complaining of 5 days of cough and congestion. Is primarily a dry cough but she has been coughing up some clear phlegm from time to time. She denies fever and chills. No runny nose or headache. No face pain. Denies earaches. No chest pain shortness of breath or difficulty breathing. She's not heard any wheezing sounds in her chest. Her appetite has been normal. She's not had any nausea vomiting or abdominal pain. Bowels and bladder are normal. She has a known history of hypertension. she is noncompliant with taking her medication regularly.] Review of systems: As per history of present illness and below otherwise all systems reviewed and negative. Past medical history: As per history of present illness and as reviewed below otherwise noncontributory. Surgical history: As per history of present illness and as reviewed below otherwise noncontributory. Social history: No reported history of drug or alcohol abuse. Family history: As per history of present illness and as reviewed below otherwise noncontributory. Physical exam: HEENT: Atraumatic, normocephalic. TMs are pearly cheng and without erythema. Oral mucous membranes are pink and moist. No tonsillar swelling erythema or exudate. Nares are patent and dry no discharge. Throat is clear. Neck supple, no lymphadenopathy. Lungs: Clear to auscultation, breath sounds equal bilaterally. Chest sounds tight but there is no wheezing crackles or rales. Heart: S1S2, regular rate and rhythm. No murmur gallop click or rub. Abdomen: Soft, nondistended, nontender. No masses guarding or rebound. Pelvis: Stable nontender. Genitourinary: Deferred. Rectal: Deferred. Extremities: Atraumatic, no cyanosis or edema to feet or lower legs. Neurovascular unremarkable. Neuro: Awake, alert, oriented. Motor and sensory unremarkable throughout. Exam nonfocal. Therapeutics: [Albuterol nebulizer treatment] Impression: [Viral cough and cold] Plan: [Discharge to home. Discussed with patient and her daughter that her symptoms are viral in nature and are likely caused by a common cold. Patient states that she feels as though she is able to breathe more deeply following neb treatment. Encouraged her to stop DayQuil and NyQuil and change to Robitussin or Delsym. Rest, push fluids. Follow-up with PCP. All questions are answered and concerns are addressed.] Definitive disposition and diagnosis as appropriate pending reevaluation and review of above. 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: Musculoskeletal History: Reports: None Neurological History: Reports: None Psychiatric History: Reports: None Endocrine/Metabolic History: Reports: None Hematologic History: Reports: None Immunologic History: Reports: None Oncologic (Cancer) History: Reports: None Dermatologic History: Reports: None - Infectious Disease History Infectious Disease History: Reports: None - Past Surgical History GI Surgical History: Reports: Cholecystectomy Social & Family History - Family History Family Medical History: Noncontributory - Tobacco Use Smoking Status *Q: Never Smoker - Caffeine Use Caffeine Use: Reports: Coffee - Recreational Drug Use Recreational Drug Use: No ED ROS ENT - Review of Systems Review Of Systems: ROS reveals no pertinent complaints other than HPI. ED EXAM, ENT - Physical Exam Exam: See Below Course - Vital Signs Last Recorded V/S: Last Vital Signs Temp 97.5 F 03/22/17 11:51 Pulse 73 03/22/17 12:13 Resp 18 03/22/17 12:13 BP 180/102 H 03/22/17 12:13 Pulse Ox 98 03/22/17 12:13 - Orders/Labs/Meds Orders: Active Orders 24 hr Category Date Time Status RT Aerosol Therapy [RC] ASDIRECTED Care 11/04/17 12:10 Active Meds: Medications Discontinued Medications Generic Name Dose Route Start Last Admin Trade Name Julita PRN Reason Stop Dose Admin Albuterol 2.5 mg 03/22/17 12:10 03/22/17 12:19 Proventil Neb Soln NEB 03/22/17 12:11 2.5 mg ONETIME ONE Administration Departure - Departure Time of Disposition: 12:55 Disposition: Home, Self-Care 01 Condition: Good Clinical Impression: Viral URI with cough - Discharge Information Instructions: Upper Respiratory Infection, Adult Referrals: PCP,None [Primary Care Provider] - Forms: ED Department Discharge Additional Instructions: The following information is given to patients seen in the emergency department who are being discharged to home. This information is to outline your options for follow-up care. We provide all patients seen in our emergency department with a follow-up referral. The need for follow-up, as well as the timing and circumstances, are variable depending upon the specifics of your emergency department visit. If you don't have a primary care physician on staff, we will provide you with a referral. We always advise you to contact your personal physician following an emergency department visit to inform them of the circumstance of the visit and for follow-up with them and/or the need for any referrals to a consulting specialist. The emergency department will also refer you to a specialist when appropriate. This referral assures that you have the opportunity for follow-up care with a specialist. All of these measure are taken in an effort to provide you with optimal care, which includes your follow-up. Under all circumstances we always encourage you to contact your private physician who remains a resource for coordinating your care. When calling for follow-up care, please make the office aware that this follow-up is from your recent emergency room visit. If for any reason you are refused follow-up, please contact the [facility] emergency department at and asked to speak to the emergency department charge nurse. [facility] [address] [place] [id number] Establish care and follow-up with a provider at the clinic listed above in 2-3 days. You've been diagnosed with a viral cough and cold. Recommend you take Robitussin or Delsym cough syrup. These cost a little bit more at the store but they work much better than the other medications you've been taking. Tylenol or ibuprofen as needed for discomfort. You need to push fluids, and get plenty of rest. Return to ER as needed as discussed. - My Orders Last 24 Hours: My Active Orders 03/22/17 12:10 RT Aerosol Therapy [RC] ASDIRECTED - Assessment/Plan Last 24 Hours: My Active Orders 03/22/17 12:10 RT Aerosol Therapy [RC] ASDIRECTED
[2017-03-22 13:28] VITALS: BP 159/92
== END 2017-03-22 13:17 | disposition home or self-care (01) ==
LOC: MW.ED 11:44
DX: J06.9 Acute upper respiratory infection, unspecified (principal)
CPT/HCPCS: 94640; 99282; 99283-25

== ENCOUNTER 2019-03-26 01:00 | Emergency (ER) | payer SELFPAY ==
[2019-03-26] MEDS ORDERED: Ketorolac 30 MG/ML SDV IVPUSH ONE (01:19)
[2019-03-26] MEDS ORDERED: Sodium Chloride 0.9% 2.5 ML Syringe FLUSH PRN (01:19)
[2019-03-26] MEDS ORDERED: diphenhydrAMINE 50 MG/ML SDV IVPUSH ONE (01:19)
[2019-03-26] MEDS ORDERED: Sodium Chloride 0.9% 10 ML Syringe FLUSH PRN (01:19)
[2019-03-26] MEDS ORDERED: methylPREDNISolone Sodium Succinate 125 MG/2 ML SDV IVPUSH ONE (01:19)
--- NOTE | 2019-03-26 01:28 | EDM.PDOC ---
ED HPI GENERAL MEDICAL PROBLEM - General Chief Complaint: Headache Stated Complaint: SEVERE HEADACHE Time Seen by Provider: 03/26/19 01:15 - History of Present Illness INITIAL COMMENTS - FREE TEXT/NARRATIVE: HISTORY AND PHYSICAL: History of present illness: The patient is a 44-year-old female with a known history of hypertension who tells me that she stopped taking her medicines about 3 or 4 months ago and presented to our clinic yesterday afternoon complaining of a 2 day history of a frontal headache and was noted to have elevated blood pressure. She was started on Nifedical XL and she filled the prescription and took one dose. She says to me that she has had this headache for the last 2 days and it started gradually and was responding to Tylenol but she took a dose of 2 tablets of extra strength Tylenol last evening and did not seem to work so she is here for evaluation. She denies any fevers chills nasal congestion or drainage sore throat or neck pain and has no chest pain or shortness of breath. She has no nausea vomiting or diarrhea and has been urinating normally. She says she is not sure if she is . It is unclear what medication she used to take several months ago and she tells me that it seemed to be working very well which is why she stopped taking it. Her current medication that was she was given yesterday is new for her. She has no swelling to her hands or feet. She does admits that she does eat a lot of salt and salty foods. She denies any recent trauma to her head or neck and does not have any posterior head pain. She says she has no history of chronic headaches that she is aware of. Review of systems: As per history of present illness and below otherwise all systems reviewed and negative. Past medical history: As per history of present illness and as reviewed below otherwise noncontributory. Surgical history: As per history of present illness and as reviewed below otherwise noncontributory. Social history: No reported history of drug or alcohol abuse. Family history: As per history of present illness and as reviewed below otherwise noncontributory. Physical exam: General: Well-developed well-nourished overweight female who is nontoxic and vital signs are noted by me. She moves easily in the ED and is slightly photophobic HEENT: Atraumatic, normocephalic, pupils reactive, negative for conjunctival pallor or scleral icterus, mucous membranes moist, throat clear, neck supple, nontender, trachea midline. There is tenderness when I palpate the frontal scalp and temporal areas without any temporal artery tenderness specifically or thickening and there is no nuchal rigidity or sinus tenderness. Lungs: Clear to auscultation, breath sounds equal bilaterally, chest nontender. Heart: S1S2, regular, negative for clicks, rubs, or JVD. Abdomen: Soft, nondistended, nontender. Negative for masses or hepatosplenomegaly. Negative for costovertebral tenderness. Pelvis: Stable nontender. Genitourinary: Deferred. Rectal: Deferred. Extremities: Atraumatic, negative for cords or calf pain. Neurovascular unremarkable. No pedal edema or leg asymmetry Neuro: Awake, alert, oriented. Cranial nerves II through XII unremarkable. Cerebellum unremarkable. Motor and sensory unremarkable throughout. Exam nonfocal. Diagnostics: EKG CT scan of the head CBC CMP UA with reflex UCG Therapeutics: IV O2 monitor IV fluids Benadryl Toradol Solu-Medrol tramadol According to a computer survey that I performed patient was here 2 times in 2017 for headache/hypertension or sequela of elevated blood pressure such as dizziness or palpitation. In the past according to those notes she was on metoprolol and on one of those visits she was discharged home on lisinopril and hydrochlorothiazide. The blood pressures on discharge from those visits were 140s over 90s and this may be her baseline. It is unclear what her blood pressure was over in the clinic this morning. The patient's blood pressure has normalized to 156/71. Impression: Headache, poorly controlled hypertension with new medications Definitive disposition and diagnosis as appropriate pending reevaluation and review of above. 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: Musculoskeletal History: Reports: None Neurological History: Reports: None Psychiatric History: Reports: None Endocrine/Metabolic History: Reports: None Hematologic History: Reports: None Immunologic History: Reports: None Oncologic (Cancer) History: Reports: None Dermatologic History: Reports: None - Infectious Disease History Infectious Disease History: Reports: None - Past Surgical History GI Surgical History: Reports: Cholecystectomy Social & Family History - Family History Family Medical History: Noncontributory - Tobacco Use Smoking Status *Q: Never Smoker Second Hand Smoke Exposure: No - Caffeine Use Caffeine Use: Reports: None - Recreational Drug Use Recreational Drug Use: No ED ROS GENERAL - Review of Systems Review Of Systems: ROS reveals no pertinent complaints other than HPI. ED EXAM, GENERAL - Physical Exam Exam: See Below (See dictation) Course - Vital Signs Last Recorded V/S: Last Vital Signs Temp 36.4 C 03/26/19 02:14 Pulse 61 03/26/19 02:14 Resp 18 03/26/19 02:14 BP 156/71 H 03/26/19 02:14 Pulse Ox 96 03/26/19 02:14 - Orders/Labs/Meds Orders: Active Orders 24 hr Category Date Time Status EKG Documentation Completion [RC] STAT Care 03/26/19 01:19 Active Sodium Chloride 0.9% [Saline Flush] Med 03/26/19 01:19 Active 10 ml FLUSH ASDIRECTED PRN Sodium Chloride 0.9% [Saline Flush] Med 03/26/19 01:19 Active 2.5 ml FLUSH ASDIRECTED PRN traMADol [Ultram] Med 03/26/19 02:18 Once 100 mg PO ONETIME ONE Saline Lock Insert [OM.PC] Stat Oth 03/26/19 01:19 Ordered Medication Orders Sodium Chloride (Saline Flush) 10 ml FLUSH ASDIRECTED PRN PRN Reason: Keep Vein Open Last Admin: 03/26/19 01:41 Dose: 10 ml Sodium Chloride (Saline Flush) 2.5 ml FLUSH ASDIRECTED PRN PRN Reason: Keep Vein Open Last Admin: 03/26/19 01:40 Dose: 2.5 ml Labs: Laboratory Tests 03/26/19 03/26/19 03/26/19 Range/Units 01:30 01:30 01:30 WBC 6.88 (4.0-11.0) K/uL RBC 4.55 (4.30-5.90) M/uL Hgb 11.6 L (12.0-16.0) g/dL Hct 35.5 L (36.0-46.0) % MCV 78.0 L (80.0-98.0) fL MCH 25.5 L (27.0-32.0) pg MCHC 32.7 (31.0-37.0) g/dL RDW Std Deviation 43.0 (28.0-62.0) fl RDW Coeff of Kendrick 15 (11.0-15.0) % Plt Count 253 (150-400) K/uL MPV 11.10 (7.40-12.00) fL Neut % (Auto) 49.6 (48.0-80.0) % Lymph % (Auto) 34.7 (16.0-40.0) % [place] % (Auto) 14.0 (0.0-15.0) % Eos % (Auto) 1.6 (0.0-7.0) % Baso % (Auto) 0.1 (0.0-1.5) % Neut # (Auto) 3.4 (1.4-5.7) K/uL Lymph # (Auto) 2.4 (0.6-2.4) K/uL [place] # (Auto) 1.0 H (0.0-0.8) K/uL Eos # (Auto) 0.1 (0.0-0.7) K/uL Baso # (Auto) 0.0 (0.0-0.1) K/uL Sodium (136-145) mmol/L Potassium (3.5-5.1) mmol/L Chloride (98-107) mmol/L Carbon Dioxide (21.0-32.0) mmol/L BUN (7.0-18.0) mg/dL Creatinine (0.6-1.0) mg/dL Est Cr Clr Drug Dosing mL/min Estimated GFR (MDRD) ml/min Glucose (74-106) mg/dL Calcium (8.5-10.1) mg/dL Total Bilirubin (0.2-1.0) mg/dL AST (15-37) IU/L ALT (14-63) IU/L Alkaline Phosphatase (46-116) U/L Total Protein (6.4-8.2) g/dL Albumin (3.4-5.0) g/dL Globulin (2.6-4.0) g/dL Albumin/Globulin Ratio (0.9-1.6) Urine Color YELLOW Urine Appearance CLEAR Urine pH 7.0 (5.0-8.0) Ur Specific [place] 1.010 (1.001-1.035) Urine Protein NEGATIVE (NEGATIVE) mg/dL Urine Glucose (UA) NEGATIVE (NEGATIVE) mg/dL Urine Ketones NEGATIVE (NEGATIVE) mg/dL Urine Occult Blood SMALL H (NEGATIVE) Urine Nitrite NEGATIVE (NEGATIVE) Urine Bilirubin NEGATIVE (NEGATIVE) Urine Urobilinogen 0.2 (<2.0) EU/dL Ur Leukocyte Esterase NEGATIVE (NEGATIVE) Urine RBC 1-2 (0-2/HPF) Urine WBC 0-1 (0-5/HPF) Ur Epithelial Cells RARE (NONE-FEW) Urine Bacteria RARE (NEGATIVE) Urine HCG, Qual NEGATIVE (NEGATIVE) 03/26/19 Range/Units 01:30 WBC (4.0-11.0) K/uL RBC (4.30-5.90) M/uL Hgb (12.0-16.0) g/dL Hct (36.0-46.0) % MCV (80.0-98.0) fL MCH (27.0-32.0) pg MCHC (31.0-37.0) g/dL RDW Std Deviation (28.0-62.0) fl RDW Coeff of Kendrick (11.0-15.0) % Plt Count (150-400) K/uL MPV (7.40-12.00) fL Neut % (Auto) (48.0-80.0) % Lymph % (Auto) (16.0-40.0) % [place] % (Auto) (0.0-15.0) % Eos % (Auto) (0.0-7.0) % Baso % (Auto) (0.0-1.5) % Neut # (Auto) (1.4-5.7) K/uL Lymph # (Auto) (0.6-2.4) K/uL [place] # (Auto) (0.0-0.8) K/uL Eos # (Auto) (0.0-0.7) K/uL Baso # (Auto) (0.0-0.1) K/uL Sodium 143 (136-145) mmol/L Potassium 3.6 (3.5-5.1) mmol/L Chloride 105 (98-107) mmol/L Carbon Dioxide 29.9 (21.0-32.0) mmol/L BUN 11 (7.0-18.0) mg/dL Creatinine 0.9 (0.6-1.0) mg/dL Est Cr Clr Drug Dosing 74.67 mL/min Estimated GFR (MDRD) > 60.0 ml/min Glucose 101 (74-106) mg/dL Calcium 8.8 (8.5-10.1) mg/dL Total Bilirubin 0.1 L (0.2-1.0) mg/dL AST 21 (15-37) IU/L ALT 27 (14-63) IU/L Alkaline Phosphatase 87 (46-116) U/L Total Protein 8.3 H (6.4-8.2) g/dL Albumin 3.7 (3.4-5.0) g/dL Globulin 4.6 H (2.6-4.0) g/dL Albumin/Globulin Ratio 0.8 L (0.9-1.6) Urine Color Urine Appearance Urine pH (5.0-8.0) Ur Specific [place] (1.001-1.035) Urine Protein (NEGATIVE) mg/dL Urine Glucose (UA) (NEGATIVE) mg/dL Urine Ketones (NEGATIVE) mg/dL Urine Occult Blood (NEGATIVE) Urine Nitrite (NEGATIVE) Urine Bilirubin (NEGATIVE) Urine Urobilinogen (<2.0) EU/dL Ur Leukocyte Esterase (NEGATIVE) Urine RBC (0-2/HPF) Urine WBC (0-5/HPF) Ur Epithelial Cells (NONE-FEW) Urine Bacteria (NEGATIVE) Urine HCG, Qual (NEGATIVE) Meds: Medications Generic Name Dose Route Start Last Admin Trade Name Freq PRN Reason Stop Dose Admin Sodium Chloride 10 ml 03/26/19 01:19 03/26/19 01:41 Saline Flush FLUSH 10 ml ASDIRECTED PRN Administration Keep Vein Open Sodium Chloride 2.5 ml 03/26/19 01:19 03/26/19 01:40 Saline Flush FLUSH 2.5 ml ASDIRECTED PRN Administration Keep Vein Open Discontinued Medications Generic Name Dose Route Start Last Admin Trade Name Freq PRN Reason Stop Dose Admin Diphenhydramine HCl 50 mg 03/26/19 01:19 03/26/19 01:32 Benadryl IVPUSH 03/26/19 01:20 50 mg ONETIME ONE Administration Ketorolac Tromethamine 30 mg 03/26/19 01:19 03/26/19 02:16 Toradol IVPUSH 03/26/19 01:20 30 mg ONETIME ONE Administration Methylprednisolone Sodium Succinate 125 mg 03/26/19 01:19 03/26/19 01:31 Solu-Medrol IVPUSH 03/26/19 01:20 125 mg ONETIME ONE Administration Departure - Departure Time of Disposition: Disposition: Home, Self-Care 01 Condition: Good Clinical Impression: Poorly-controlled hypertension Headache Qualifiers: Headache type: unspecified Headache chronicity pattern: unspecified pattern Intractability: not intractable Qualified Code(s): R51 - Headache - Discharge Information Referrals: PCP,None [Primary Care Provider] - Forms: ED Department Discharge Additional Instructions: The following information is given to patients seen in the emergency department who are being discharged to home. This information is to outline your options for follow-up care. We provide all patients seen in our emergency department with a follow-up referral. The need for follow-up, as well as the timing and circumstances, are variable depending upon the specifics of your emergency department visit. If you don't have a primary care physician on staff, we will provide you with a referral. We always advise you to contact your personal physician following an emergency department visit to inform them of the circumstance of the visit and for follow-up with them and/or the need for any referrals to a consulting specialist. The emergency department will also refer you to a specialist when appropriate. This referral assures that you have the opportunity for followup care with a specialist. All of these measure are taken in an effort to provide you with optimal care, which includes your followup. Under all circumstances we always encourage you to contact your private physician who remains a resource for coordinating your care. When calling for followup care, please make the office aware that this follow-up is from your recent emergency room visit. If for any reason you are refused follow-up, please contact the [facility] emergency department at and ask to speak to the emergency department charge nurse. MICHELLE [facility] Primary care- Internal Medicine and Family [facility] [address] [place] [address] Rest and continue to use [id number] Tylenol, 2 tablets of extra strength, every 6 hours and add Motrin/ibuprofen 800 mg every 6 hours as needed. Try to reduce sodium in her diet both added salt and in processed foods by reading labels to choose foods that have low sodium levels as this will contribute to your blood pressure and your headache. Try to reduce and/or eliminate caffeine use and push hydration. Please continue with your newly prescribed a blood pressure medications as directed. Return to ER as needed and as discussed. Make sure to schedule a follow-up appointment in the clinic to have your blood pressure and your headache symptoms reevaluated. - My Orders Last 24 Hours: My Active Orders 03/26/19 01:19 EKG Documentation Completion [RC] STAT Sodium Chloride 0.9% [Saline Flush] 10 ml FLUSH ASDIRECTED PRN Sodium Chloride 0.9% [Saline Flush] 2.5 ml FLUSH ASDIRECTED PRN Saline Lock Insert [OM.PC] Stat 03/26/19 02:18 traMADol [Ultram] 100 mg PO ONETIME ONE - Assessment/Plan Last 24 Hours: My Active Orders 03/26/19 01:19 EKG Documentation Completion [RC] STAT Sodium Chloride 0.9% [Saline Flush] 10 ml FLUSH ASDIRECTED PRN Sodium Chloride 0.9% [Saline Flush] 2.5 ml FLUSH ASDIRECTED PRN Saline Lock Insert [OM.PC] Stat 03/26/19 02:18 traMADol [Ultram] 100 mg PO ONETIME ONE
[2019-03-26 02:02] LABS: BLOOD UREA NITROGEN,BUN 11 mg/dL (7.0-18.0); CARBON DIOXIDE,CO2 29.9 mmol/L (21.0-32.0); CHLORIDE,CL 105 mmol/L (98-107); GLUCOSE RANDOM 101 mg/dL (74-106); POTASSIUM,K 3.6 mmol/L (3.5-5.1); SODIUM,NA 143 mmol/L (136-145)
--- NOTE | 2019-03-26 02:12 | CT ---
Indication: Headache Technique: Nonenhanced axial CT imaging through the head. Sagittal and coronal reconstructions are provided. Comparison: CT head without contrast 07/23/2016 Findings: There is no intracranial hemorrhage, edema, or mass effect. There is normal attenuation of the brain parenchyma. The ventricles are normal in size. The basal cisterns are patent. The calvarium is intact. The visualized paranasal sinuses and mastoid air cells are well aerated. Impression: No acute intracranial process. Please note that all CT scans at this facility use dose modulation, iterative reconstruction, and/or weight-based dosing when appropriate to reduce radiation dose to as low as reasonably achievable. Dictated by Makenna Lang MD @ Mar 26 2019 2:10AM Signed by Dr. Makenna Lang @ Mar 26 2019 2:10AM
[2019-03-26 02:14] VITALS: BP 156/71; PULSE 61
[2019-03-26] MEDS ORDERED: traMADol 50 MG Tab PO ONE (02:18)
== END 2019-03-26 02:44 | disposition home or self-care (01) ==
LOC: MW.ED 01:00
DX: I10 Essential (primary) hypertension (principal); Z79.899 Other long term (current) drug therapy
CPT/HCPCS: 36415; 70450; 80053; 81001; 81025; 85025; 93005; 96374; 96375; 99284; A9270; J1200; J1885; J2930

== ENCOUNTER 2019-04-04 01:36 | Emergency (ER) | payer SELFPAY ==
--- NOTE | 2019-04-04 02:18 | EDM.PDOC ---
ED HPI GENERAL MEDICAL PROBLEM - General Chief Complaint: Gastrointestinal Problem Stated Complaint: ABD PAIN Time Seen by Provider: 04/04/19 02:10 - History of Present Illness INITIAL COMMENTS - FREE TEXT/NARRATIVE: HISTORY AND PHYSICAL: History of present illness: Patient is a 44-year-old female with a history of hypertension who I saw here approximate 10 days ago for headache and did labs and a CAT scan and advised her that she needed to get connected with primary care due to her hypertension and symptoms and who presents today with approximately 10 days of constipation and no bowel movement, abdominal gas and distention and a cough for 3 days without fever. Patient says she has had a nonproductive cough and a slight runny nose without fever for the 3 days and she did not get her influenza shot. She has no chest pain or shortness of breath. She says that she did not try anything [id number] for her cough symptoms or her constipation and she says that she feels like the poop is too hard and it is in her rectum and she cannot get it out. She is not vomiting and is complaining that she is lightheaded but states compliance with her blood pressure medication. The patient does say that she feels bloated and she doesn't have any specific location of abdominal pain. She has a making urine output and she is unsure if she is and her last period was the end of January. On her last evaluation by me on March 26 she had a negative urine test Review of systems: As per history of present illness and below otherwise all systems reviewed and negative. Past medical history: As per history of present illness and as reviewed below otherwise noncontributory. Surgical history: As per history of present illness and as reviewed below otherwise noncontributory. Social history: No reported history of drug or alcohol abuse. Family history: As per history of present illness and as reviewed below otherwise noncontributory. Physical exam: General: Well-developed well-nourished female who is nontoxic and vital signs are noted by me. She is speaking clearly without breathlessness HEENT: Atraumatic, normocephalic, pupils reactive, negative for conjunctival pallor or scleral icterus, mucous membranes moist, throat clear, neck supple, nontender, trachea midline. No cervical adenopathy or nuchal rigidity Lungs: Clear to auscultation, breath sounds equal bilaterally, chest nontender. Things stridor or work of breathing Heart: S1S2, regular, negative for clicks, rubs, or JVD. Abdomen: Soft, nondistended, nontender. No sounds are very hypoactive and there is some tympany on percussion but no specific area of tenderness rebound or guarding Negative for masses or hepatosplenomegaly. Negative for costovertebral tenderness. Pelvis: Stable nontender. Genitourinary: Deferred. Rectal: Deferred. Extremities: Atraumatic, negative for cords or calf pain. Neurovascular unremarkable. No pedal edema or leg asymmetry Neuro: Awake, alert, oriented. Cranial nerves II through XII unremarkable. Cerebellum unremarkable. Motor and sensory unremarkable throughout. Exam nonfocal. Diagnostics: Influenza UA UCG CBC CMP chest x-ray with abdominal films Therapeutics: Initially on my evaluation the patient had a dry cough but as I am working in the department I am hearing her having a more hacky cough that is not loose but is spastic. She was made aware of x-ray results showing that she needs to take medications [id number] to help evacuate the stool. I will recommend MiraLAX and Colace to do it more gently. Her blood pressure has normalized here without any intervention and is currently 145/81. I will give her some cough medicine and give her symptomatic management for her coughing and stressed the need for follow-up in the clinic. Impression: Constipation, URI with cough, poorly controlled hypertension stable Definitive disposition and diagnosis as appropriate pending reevaluation and review of above. abdomen Pain Score (Numeric/FACES): 10 - Related Data Allergies Allergy/AdvReac Type Severity Reaction Status Date / Time No Known Allergies Allergy Verified 04/04/19 01:49 Home Meds: Home Meds NIFEdipine [Nifedical XL] 30 mg PO DAILY 03/26/19 [History] Past Medical History - Past Health History Medical/Surgical History: Denies Medical/Surgical History HEENT History: Reports: None Cardiovascular History: Reports: Hypertension Respiratory History: Reports: None Gastrointestinal History: Reports: None Genitourinary History: Reports: None [employer] History: Reports: Musculoskeletal History: Reports: None Neurological History: Reports: None Psychiatric History: Reports: None Endocrine/Metabolic History: Reports: None Hematologic History: Reports: None Immunologic History: Reports: None Oncologic (Cancer) History: Reports: None Dermatologic History: Reports: None - Infectious Disease History Infectious Disease History: Reports: None - Past Surgical History GI Surgical History: Reports: Cholecystectomy Social & Family History - Family History Family Medical History: Noncontributory - Caffeine Use Caffeine Use: Reports: None ED ROS GENERAL - Review of Systems Review Of Systems: Comprehensive ROS is negative, except as noted in HPI. ED EXAM, GENERAL - Physical Exam Exam: See Below (see Dictation) Course - Vital Signs Last Recorded V/S: Last Vital Signs Temp 36.7 C 04/04/19 01:40 Pulse 83 04/04/19 03:08 Resp 18 04/04/19 03:08 BP 145/81 H 04/04/19 03:08 Pulse Ox 100 04/04/19 01:40 - Orders/Labs/Meds Labs: Laboratory Tests 04/04/19 04/04/19 04/04/19 Range/Units 02:25 02:25 02:30 WBC 7.87 (4.0-11.0) K/uL RBC 5.09 (4.30-5.90) M/uL Hgb 12.9 (12.0-16.0) g/dL Hct 39.0 (36.0-46.0) % MCV 76.6 L (80.0-98.0) fL MCH 25.3 L (27.0-32.0) pg MCHC 33.1 (31.0-37.0) g/dL RDW Std Deviation 41.5 (28.0-62.0) fl RDW Coeff of Kendrick 15 (11.0-15.0) % Plt Count 314 (150-400) K/uL MPV 11.80 (7.40-12.00) fL Neut % (Auto) 40.6 L (48.0-80.0) % Lymph % (Auto) 39.6 (16.0-40.0) % Butler % (Auto) 17.2 H (0.0-15.0) % Eos % (Auto) 2.3 (0.0-7.0) % Baso % (Auto) 0.3 (0.0-1.5) % Neut # (Auto) 3.2 (1.4-5.7) K/uL Lymph # (Auto) 3.1 H (0.6-2.4) K/uL Butler # (Auto) 1.4 H (0.0-0.8) K/uL Eos # (Auto) 0.2 (0.0-0.7) K/uL Baso # (Auto) 0.0 (0.0-0.1) K/uL Sodium (136-145) mmol/L Potassium (3.5-5.1) mmol/L Chloride (98-107) mmol/L Carbon Dioxide (21.0-32.0) mmol/L BUN (7.0-18.0) mg/dL Creatinine (0.6-1.0) mg/dL Est Cr Clr Drug Dosing Estimated GFR (MDRD) ml/min Glucose (74-106) mg/dL Calcium (8.5-10.1) mg/dL Total Bilirubin (0.2-1.0) mg/dL AST (15-37) IU/L ALT (14-63) IU/L Alkaline Phosphatase (46-116) U/L Total Protein (6.4-8.2) g/dL Albumin (3.4-5.0) g/dL Globulin (2.6-4.0) g/dL Albumin/Globulin Ratio (0.9-1.6) Urine Color YELLOW Urine Appearance CLEAR Urine pH 6.0 (5.0-8.0) Ur Specific Globe <= 1.005 (1.001-1.035) Urine Protein NEGATIVE (NEGATIVE) mg/dL Urine Glucose (UA) NEGATIVE (NEGATIVE) mg/dL Urine Ketones NEGATIVE (NEGATIVE) mg/dL Urine Occult Blood SMALL H (NEGATIVE) Urine Nitrite NEGATIVE (NEGATIVE) Urine Bilirubin NEGATIVE (NEGATIVE) Urine Urobilinogen 0.2 (<2.0) EU/dL Ur Leukocyte Esterase NEGATIVE (NEGATIVE) Urine RBC 1-2 (0-2/HPF) Urine WBC 0-1 (0-5/HPF) Ur Epithelial Cells RARE (NONE-FEW) Urine Bacteria RARE (NEGATIVE) Urine HCG, Qual NEGATIVE (NEGATIVE) 04/04/19 Range/Units 02:30 WBC (4.0-11.0) K/uL RBC (4.30-5.90) M/uL Hgb (12.0-16.0) g/dL Hct (36.0-46.0) % MCV (80.0-98.0) fL MCH (27.0-32.0) pg MCHC (31.0-37.0) g/dL RDW Std Deviation (28.0-62.0) fl RDW Coeff of Kendrick (11.0-15.0) % Plt Count (150-400) K/uL MPV (7.40-12.00) fL Neut % (Auto) (48.0-80.0) % Lymph % (Auto) (16.0-40.0) % Butler % (Auto) (0.0-15.0) % Eos % (Auto) (0.0-7.0) % Baso % (Auto) (0.0-1.5) % Neut # (Auto) (1.4-5.7) K/uL Lymph # (Auto) (0.6-2.4) K/uL Butler # (Auto) (0.0-0.8) K/uL Eos # (Auto) (0.0-0.7) K/uL Baso # (Auto) (0.0-0.1) K/uL Sodium 138 (136-145) mmol/L Potassium 3.7 (3.5-5.1) mmol/L Chloride 101 (98-107) mmol/L Carbon Dioxide 30.6 (21.0-32.0) mmol/L BUN 10 (7.0-18.0) mg/dL Creatinine 1.1 H (0.6-1.0) mg/dL Est Cr Clr Drug Dosing TNP Estimated GFR (MDRD) > 60.0 ml/min Glucose 108 H (74-106) mg/dL Calcium 10.0 (8.5-10.1) mg/dL Total Bilirubin 0.2 (0.2-1.0) mg/dL AST 32 (15-37) IU/L ALT 43 (14-63) IU/L Alkaline Phosphatase 100 (46-116) U/L Total Protein 8.7 H (6.4-8.2) g/dL Albumin 3.8 (3.4-5.0) g/dL Globulin 4.9 H (2.6-4.0) g/dL Albumin/Globulin Ratio 0.8 L (0.9-1.6) Urine Color Urine Appearance Urine pH (5.0-8.0) Ur Specific Globe (1.001-1.035) Urine Protein (NEGATIVE) mg/dL Urine Glucose (UA) (NEGATIVE) mg/dL Urine Ketones (NEGATIVE) mg/dL Urine Occult Blood (NEGATIVE) Urine Nitrite (NEGATIVE) Urine Bilirubin (NEGATIVE) Urine Urobilinogen (<2.0) EU/dL Ur Leukocyte Esterase (NEGATIVE) Urine RBC (0-2/HPF) Urine WBC (0-5/HPF) Ur Epithelial Cells (NONE-FEW) Urine Bacteria (NEGATIVE) Urine HCG, Qual (NEGATIVE) Departure - Departure Time of Disposition: 03:21 Disposition: Home, Self-Care 01 Condition: Good Clinical Impression: URI with cough and congestion Constipation Qualifiers: Constipation type: unspecified constipation type Qualified Code(s): K59.00 - Constipation, unspecified - Discharge Information Referrals: PCP,None [Primary Care Provider] - Forms: ED Department Discharge Additional Instructions: The following information is given to patients seen in the emergency department who are being discharged to home. This information is to outline your options for follow-up care. We provide all patients seen in our emergency department with a follow-up referral. The need for follow-up, as well as the timing and circumstances, are variable depending upon the specifics of your emergency department visit. If you don't have a primary care physician on staff, we will provide you with a referral. We always advise you to contact your personal physician following an emergency department visit to inform them of the circumstance of the visit and for follow-up with them and/or the need for any referrals to a consulting specialist. The emergency department will also refer you to a specialist when appropriate. This referral assures that you have the opportunity for followup care with a specialist. All of these measure are taken in an effort to provide you with optimal care, which includes your followup. Under all circumstances we always encourage you to contact your private physician who remains a resource for coordinating your care. When calling for followup care, please make the office aware that this follow-up is from your recent emergency room visit. If for any reason you are refused follow-up, please contact the [facility] emergency department at and ask to speak to the emergency department charge nurse. [facility] Primary care- Internal Medicine and Family [place] [phone] Push hydration such as water and juices and avoid caffeinated products. Please buy [id number] Colace 100 mg per tablet, take 1 tablet twice a day for the next 5 days. Also purchase [id number] MiraLAX and take one heaping tablespoon in water or juice twice a day for the next 2-3 days to get the bowels moving and once you have a decent bowel movement you may stop. Please use cough medicine as you have been prescribed an as needed and also use coolmist humidifier and Vicks to chest for your cough. Please connect with one of our providers in the clinic for further care and evaluation and return to ER as needed and as discussed
[2019-04-04 02:50] LABS: BLOOD UREA NITROGEN,BUN 10 mg/dL (7.0-18.0); CARBON DIOXIDE,CO2 30.6 mmol/L (21.0-32.0); CHLORIDE,CL 101 mmol/L (98-107); GLUCOSE RANDOM 108 mg/dL (74-106); POTASSIUM,K 3.7 mmol/L (3.5-5.1); SODIUM,NA 138 mmol/L (136-145)
--- NOTE | 2019-04-04 03:14 | CR ---
INDICATION: Abdominal pain with 5 days constipation TECHNIQUE: Chest and Abdominal radiograph 4 views COMPARISON: 04/03/2017 FINDINGS: CHEST: Severe degradation of image quality noted due to body habitus. Mediastinum: The mediastinum is normal in appearance. The heart silhouette is normal in size and morphology. Lung: Both lungs are unremarkable in appearance. No sign of pleural effusion seen. No pneumothorax is identified. ABDOMEN: Bowel: A moderate amount of stool is present throughout the colon with mild gaseous distention to the level of the sigmoid. Soft tissue: No evidence of pneumoperitoneum present. No suspicious calcifications noted. Surgical clips are noted in the right upper quadrant from prior cholecystectomy. Bone: Unremarkable for age. IMPRESSION: 1. A moderate amount of stool is present throughout the colon with mild gaseous distention to the level of the sigmoid. Findings likely due to chronic constipation. Evaluation with barium enema or colonoscopy may be helpful to exclude less likely possibility of a distal colonic obstruction or stricture. Dictated by Landon Scales MD @ 04/04/2019 3:12:35 AM Dictated by: Landon Scales MD @ 04/04/2019 03:12:43 (Electronically Signed)
[2019-04-04 03:54] VITALS: BP 150/79; PULSE 103
== END 2019-04-04 03:35 | disposition home or self-care (01) ==
LOC: MW.ED 01:36
DX: K59.00 Constipation, unspecified (principal); J06.9 Acute upper respiratory infection, unspecified; I10 Essential (primary) hypertension; Z90.49 Acquired absence of other specified parts of digestive tract; Z79.899 Other long term (current) drug therapy
CPT/HCPCS: 36415; 74022; 74022-26; 80053; 81001; 81025; 85025; 87804; 99284; 99284-25